=== PATIENT | male | born 1975 | race Caucasian/White ===

== ENCOUNTER 2021-04-18 20:51 | Emergency (ER) | payer BC ==
[~2021-04-18] VITALS: Ht 175.3 cm; Wt 88.5 kg
--- NOTE | 2021-04-18 21:10 | NUR ---
Patient came in to ER with c/o left shoulder and left knee pain d/t playing socce[employer]. A/O x4, no SOB or labored breathing, denies chest pain/pressure.
--- NOTE | 2021-04-18 21:11 | NUR ---
María White at bedside, MSE in progress.
[2021-04-18] MEDS ORDERED: ONDANSETRON ODT 4 MG TAB.RAPDIS SL ONE (21:15)
[2021-04-18] MEDS ORDERED: TDAP DIPH,PERTUSS,TET VAC/PF 0.5 ML DISP.SYRIN IM ONE ×2 (21:15→21:33)
[2021-04-18] MEDS ORDERED: HYDROCODONE/APAP 10-325 MG TABLET PO ONE (21:15)
[2021-04-18] MEDS ORDERED: NEOMY/BACITRA/POLYMYXIN B OINT UD PACKET TP ONE ×2 (21:15→21:32)
--- NOTE | 2021-04-18 21:21 | NUR ---
Xray at bedside.
[2021-04-18] MEDS ORDERED: LISD70CA PO (21:27)
[2021-04-18] MEDS ORDERED: HYDROCODONE/APAP 10-325 MG TABLET ONE (21:32)
[2021-04-18] MEDS ORDERED: ONDANSETRON ODT 4 MG TAB.RAPDIS ONE (21:32)
[2021-04-18] MEDS ORDERED: HYDR-4209 PO (21:47)
[2021-04-18] MEDS ORDERED: ONDA4TAB5 PO (21:47)
--- NOTE | 2021-04-18 22:18 | NUR ---
Patient discharged to home in stable condition. A/O x4, no SOB or labored breathing, afebrile. Pain medications noted to be effective. Steady gait.Written and verbal after care instructions given. Patient verbalizes understanding of instructions. Stressed follow up or return to ER for worsening s/s. Picked up by family member.
[2021-04-18 22:19] VITALS: BP 137/80
== END 2021-04-18 22:15 | disposition home or self-care (01) ==
LOC: ER 20:55
DX: S42.022A Displaced fracture of shaft of left clavicle, initial encounter for closed fracture (principal); S80.212A Abrasion, left knee, initial encounter; W03.XXXA Other fall on same level due to collision with another person, initial encounter; Y93.66 Activity, soccer; Y92.322 Soccer field as the place of occurrence of the external cause; Y99.8 Other external cause status; F90.9 Attention-deficit hyperactivity disorder, unspecified type
CPT/HCPCS: 73000; 90715; A4663; Q0162